=== PATIENT | male | born 1965 | race Caucasian/White ===

== ENCOUNTER 2018-10-19 23:12 | Emergency (ER) | payer SELFPAY ==
[2018-10-19 23:13] VITALS: BP 139/91; PULSE 90; RESP 16; TEMP 36.8; O2SAT 96; BMI 22.6
--- NOTE | 2018-10-19 23:31 | ED.VIS.GEN ---
History of Present Illness Chief Complaint: Flank Pain Informant: Patient Narrative: She presents with flank pain on the right for the last 3 days. Waxing and waning pressure. Associated with multiple episodes of emesis. Is never had this before. Thinks he has a kidney stone. He is never had this however. It is in his right flank wrapping around. It is not reproducible. Current severity is mild to moderate. It waxes and wanes in its severity. No fevers or chills. Has not noticed any blood in his urine. He has been trying Tylenol and ibuprofen but unable to keep down. Past Medical History - Allergies and Home Meds Allergies/Adverse Reactions: Allergies procaine [From Novocain] Adverse Reaction (Verified 10/19/18 23:15) Other MSG Adverse Reaction (Uncoded 10/19/18 23:15) Diarrhea Primary Care Physician: NOT,DEFINED [NON-STAFF] - Prior records reviewed: Yes Past Medical History: - - Reviewed Surgical History: - - Reviewed Lives: With Family Smoking Status: Never smoker Alcohol: None Drugs: None Review of Systems General: Denies: Chills, Fever, Sweats Eyes: Denies: Visual changes - bilaterally, Diplopia ENT: Denies: Rhinorrhea, Sore throat Cardiovascular: Denies: Chest pain, Palpitations Respiratory: Denies: Dyspnea, Cough, Dyspnea on exertion Gastrointestinal: Reports: Nausea, Vomiting. Denies: Abdominal pain, Diarrhea, Melena, Hematochezia Genitourinary: Denies: Dysuria, Hematuria, Frequency Musculoskeletal: Reports: Back pain. Denies: Extremity Pain Skin: Denies: Rash, Wounds Neurological: Denies: Headache, Weakness, Numbness Physical Exam Vital Signs/Narrative: Vital Signs Temp Pulse Resp BP Pulse Ox 10/19/18 23:13 98.3 F 90 16 139/91 H 96 General: Well nourished, Well developed, No Acute Distress Head: Normocephalic, Atraumatic Eyes: Perrl, EOMI ENT: Moist mucous membranes, No rhinorrhea Neck: Supple, Nontender Cardiovascular: Regular rate, Regular rhythm, No murmurs Respiratory: No distress, CTA bilaterally, Chest nontender Abdomen: Soft, Nontender, Nondistended, Normal bowel sounds Back: Nontender, Normal Inspection Extremities: Nontender, No edema Skin: Normal color, No rash Neurological: Alert, Oriented x3, Cranial nerves II-XII grossly intact, Normal Strength, Normal Sensation Psychological: Normal affect, Normal Mood Diagnostic/Tx/Re-eval - Medical Decision Making Patient given IV fluids, Toradol Zofran and morphine. Lab work and CT flank obtained. Lab work shows mild dehydration pattern with elevated creatinine. No UTI. CT shows a distal right kidney stone with hydro-. Patient asymptomatic on reevaluation. He will be discharged with Vicodin, Zofran and will follow-up with urology. Encouraged to drink fluids. ED Disposition - Plan for ED Patient: Disposition: [employer]OYEE [facility] - NA Diagnosis: Kidney stone on right side Instructions: ED Stone Renal W Colic Prescriptions: Hydrocodone Bitart/Apap 5-325 [[place] 5MG-325MG] 1 tab PO Q6H PRN PRN 3 Days #10 tab PRN Reason: Pain Ondansetron [Zofran Odt] 4 mg PO Q8H PRN PRN 3 Days tab PRN Reason: Nausea Referrals: NOT,DEFINED [NON-STAFF] - Ganesh Lara MD [STAFF PHYSICIAN] -
[2018-10-19 23:42] LABS: Absolute Lymphocyte Count 1.72 X10^3/ul (0.83-4.51); Absolute Neutrophil Count 6.1 X10^3/uL (2.0-7.7); Basophil# 0.03 X10^3/uL; Basophil% 0.3 % (0-1); Eosinophil# 0.07 X10^3/uL; Eosinophils% 0.8 % (0-5); Hemoglobin 17.8 g/dl (13.0-16.5); Lymphocyte # 1.72 X10^3/ul (4.0); Lymphocyte % 18.8 % (19-41); Mean Corp Hgb Conc 35.6 g/gl (32-36); Mean Corpuscular Hgb 31.4 pg (27.0-32.0); Mean Corpuscular Volume 88.2 fL (80-94); Mean Platelet Vol. 11.1 fl (6.2-12.0); Monocyte# 1.18 X10^3/uL; Monocyte% 12.9 % (0-10); Neutrophil # 6.14 X10^3/uL (2.7-7.7); Neutrophil % 67.1 % (47-70); Platelet Count 170 K/mm3 (150-450); RBC Distribution Width CV 12.3 % (11.6-14.6); Red Blood Count 5.67 M/mm3 (4.6-6.2); White Blood Count 9.2 K/mm3 (4.4-11.0)
[2018-10-19 23:45] LABS: POSITIVE COUNT NO; POSITIVE DIFFERENTIAL NO; POSITIVE MORPHOLOGY NO
[2018-10-19] MEDS: Ketorolac 30 MG/ML Syringe IV (23:51)
[2018-10-19] MEDS: Morphine 4 MG/ML Syringe IV (23:51)
[2018-10-19] MEDS: Ondansetron 4 MG/2 ML Vial IV (23:51)
[2018-10-19] MEDS: 0.9% Normal Saline 1,000 ML 250 ML IV (23:53)
[2018-10-19 23:57] LABS: Anion Gap 8 (5-15); BUN 27 mg/dL (7-18); BUN/Creat Ratio 15.4 RATIO (10-20); Calcium,Total 9.2 mg/dL (8.5-10.1); Chloride 102 mmol/L (98-107); Creatinine, Serum 1.75 mg/dL (0.70-1.30); EST Glomerular Filtration Rate 44 mL/min (>60); Est Glom Filt Rate - Afr Amer 53 mL/min (>60); Estimated Creatinine Clearance 43.85 ml/min; Glucose 122 mg/dL (74-106); Potassium 3.7 mmol/L (3.5-5.1); Sodium Level 138 mmol/L (136-145)
[2018-10-20 00:02] LABS: Mucous, Urine 0 SEEN /hpf (<or=2+); Squamous Epithelial Cells - UA 0 SEEN /hpf (0-5)
--- NOTE | 2018-10-20 00:05 | CT_ITS ---
STUDY: CT ABDOMEN AND PELVIS WITHOUT CONTRAST REASON FOR EXAM: Male, 53 years old. Right flank pain RADIATION DOSAGE (If Supplied By Facility): CTDIvol = ( 6.03 ) mGy, DLP = ( 273.61 ) mGycm TECHNIQUE: Transaxial images were obtained from the dome of the diaphragm to the symphysis pubis without oral contrast, and without intravenous contrast. Sagittal and coronal images were reconstructed. Individualized dose optimization techniques were used for this CT. COMPARISON: None. FINDINGS: The visualized lung bases are unremarkable. The visualized portions of the heart are within normal limits. Normal liver. Normal gallbladder and extrahepatic biliary system. Normal spleen. Normal pancreas. Normal bilateral adrenal glands. There is moderate right-sided hydronephrosis and hydroureter due to presence of 3 mm stone in distal end of the right ureter at ureterovesical junction. Normal left kidney. There is a small hiatal hernia. Normal small intestine. Normal colon. The appendix is visualized and appears normal. Normal abdominal aorta. Normal inferior vena cava. Normal retroperitoneum. Normal urinary bladder. Normal abdominal wall. There are diffuse degenerative changes of the visualized lumbar spine. CT/Abdomen/Pelvis without Cont IMPRESSION: There is moderate right-sided hydronephrosis and hydroureter due to presence of 3 mm stone in distal end of the right ureter at ureterovesical junction. Electronically Signed: Melva Ortega, at 0:42 EDT Tel , Service support ,
[2018-10-20 00:13] LABS: Color, Urine Yellow (Yellow); Glucose, Dipstick Normal (Normal); Ketone-Dipstick 15 mg/dl (Negative); Leukocyte Esterase-Dipstick 25 /ul (Negative); Nitrite-Dipstick Negative (Negative); Occult Blood-Urine 25 /ul (Negative); Protein-Dipstick 30 mg/dl (Negative); Urine Clarity Sl. Cloudy (Clear); Urine Urobilinogen 1 mg/dl (Normal)
[2018-10-20 00:27] LABS: Urine Bilirubin Dipstick 1 mg/dL (Negative)
[2018-10-20 00:29] LABS: Amorphous Sediment 1+; Bacteria RARE /hpf (None Seen); Red Blood Cells-Urine 0-5 SEEN /hpf (0-5); White Blood Cells 0-5 SEEN /hpf (0-5)
[2018-10-20 01:10] VITALS: BP 149/87; PULSE 78; RESP 16; O2SAT 96
== END 2018-10-20 01:11 | disposition home or self-care (01) ==
PROVIDERS: Emergency Provider Emergency Medicine
DX: N13.2 Hydronephrosis with renal and ureteral calculous obstruction (principal)
CPT/HCPCS: 74176; 80048; 81001; 85025; 96361; 96374; 96375; 99282; J7030; J2405